=== PATIENT | female | born 1945 | race Hispanic/Latino ===

== ENCOUNTER 2021-03-25 13:04 | Observation (INO) | payer MEDICARE ==
[~2021-03-25] VITALS: Ht 157.5 cm; Wt 58.1 kg
[2021-03-25] MEDS ORDERED: ASPIRIN 325 MG TABLET ONE (13:28)
[2021-03-25] MEDS ORDERED: ONDANSETRON HCL 4 MG/2 ML VIAL ONE (13:28)
[2021-03-25 13:29] LABS: BASOPHILS % (AUTO) 0.2 % (0.0-5.0); HEMATOCRIT 37.8 % (36-48); MEAN CORPUSCULAR HEMOGLOBIN 31.1 pg (27.0-33.0); MEAN CORPUSCULAR HGB CONC 33.6 g/dL (32.0-36.0); MEAN CORPUSCULAR VOLUME 92.6 fL (79-99); MONOCYTES % (AUTO) 7.2 % (3.0-13.0); NEUTROPHILS % (AUTO) 75.2 % (40.0-77.0); PLATELET COUNT (AUTO) 198 K/uL (130-400); RED BLOOD CELL COUNT(AUTO) 4.08 MIL/uL (4.00-5.50); RED CELL DISTRIBUTION WIDTH 12.6 % (11.0-15.5); WHITE BLOOD COUNT (AUTO) 5.1 K/uL (4.8-10.8)
[2021-03-25] MEDS ORDERED: SODIUM CHLORIDE 0.9% 500ML 500 ML IV ONE (13:29)
[2021-03-25 13:39] LABS: CREATININE 0.9 mg/dL (0.5-1.5); INR 1.04 (0.85-1.15); POTASSIUM 3.6 mmol/L (3.5-5.1); PROTHROMBIN TIME 11.3 SEC (9.6-11.6)
[2021-03-25 13:40] LABS: PARTIAL THROMBOPLASTIN TIME 25.4 SEC (26.3-35.5)
[2021-03-25 13:44] LABS: ALBUMIN 4.4 g/dL (3.5-5.0); BILIRUBIN,TOTAL 0.5 mg/dL (0.2-1.0)
[2021-03-25 13:53] LABS: B-TYPE NATRIURETIC PEPTIDE 53 pg/mL (0-100)
[2021-03-25] MEDS ORDERED: ONDANSETRON HCL 4 MG/2 ML VIAL IV PRN (16:30)
[2021-03-25] MEDS ORDERED: TEMAZEPAM 7.5 MG CAPSULE PO PRN (16:30)
[2021-03-25] MEDS ORDERED: ACETAMINOPHEN 325 MG TAB PO PRN ×2 (16:30)
[2021-03-25 16:49] LABS: APPEARANCE,URINE Clear (CLEAR); BILIRUBIN,URINE Negative (NEGATIVE); COLOR,URINE Yellow (YELLOW); GLUCOSE, URINE (UA) 500 mg/dL (NEGATIVE); KETONES,URINE >=80 mg/dL (NEGATIVE); LEUKOCYTE ESTERASE ,URINE Small (NEGATIVE); NITRATE,URINE Negative (NEGATIVE); OCCULT BLOOD,URINE Negative (NEGATIVE); PROTEIN,URINE Trace mg/dL (NEGATIVE)
[2021-03-25 16:57] LABS: AMPHET/METH SCREEN,URINE NEGATIVE (NEGATIVE); BARBITURATE SCREEN, URINE NEGATIVE (NEGATIVE); BENZODIAZEPINES SCREEN,URINE NEGATIVE (NEGATIVE); CANNABINOID SCREEN,URINE NEGATIVE (NEGATIVE); COCAINE SCREEN,URINE NEGATIVE (NEGATIVE); OPIATE SCREEN,URINE NEGATIVE (NEGATIVE); PHENCYCLIDINE SCREEN,URINE NEGATIVE (NEGATIVE)
[2021-03-25 17:06] LABS: BACTERIA,URINE Few /HPF (None Seen); MUCUS,URINE Moderate LPF (None Seen); SQUAMOUS EPITHELIAL CELL,UR Few /HPF (0-2)
[2021-03-25 17:21] LABS: CREATINE KINASE, TOTAL 43 U/L (21-232); MYOGLOBIN 32 ng/mL (10-92); THYROID STIMULATING HORMONE 0.54 uIU/mL (0.36-3.74); TROPONIN I < 0.04 ng/mL (0.00-0.06)
[2021-03-25] MEDS ORDERED: DEXTROSE 50%-WATER 50 ML DISP.SYRIN IV ONE (17:22)
[2021-03-25] MEDS ORDERED: ATORVASTATIN CALCIUM 40 MG TABLET PO SCH (21:00)
[2021-03-25] MEDS: INSULIN HUMULIN R 100 UNIT/ML 3ML SQ SCH (21:00)
[2021-03-26] VITALS: BP 139/65
[2021-03-26] MEDS: NITROGLYCERIN 1GM/1 INCH PACKET TD SCH ×2 (00:09→09:35)
[2021-03-26] MEDS: METOPROLOL TARTRATE 25 MG TAB PO SCH ×2 (00:09→09:33)
[2021-03-26 00:12] LABS: CREATINE KINASE, TOTAL 39 U/L (21-232); MYOGLOBIN 31 ng/mL (10-92); TROPONIN I < 0.04 ng/mL (0.00-0.06)
[2021-03-26] MEDS ORDERED: alendronate (00:34)
[2021-03-26] MEDS ORDERED: GLIP10TA9 PO (00:34)
[2021-03-26] MEDS ORDERED: ISOS30TA92 PO (00:34)
[2021-03-26] MEDS ORDERED: trulicity (00:34)
[2021-03-26] MEDS ORDERED: PANT40TA54 PO (00:34)
[2021-03-26] MEDS ORDERED: ENAL20TA18 PO (00:34)
[2021-03-26] MEDS ORDERED: METF-446 PO (00:34)
[2021-03-26] MEDS ORDERED: METO50TA18 PO (00:34)
[2021-03-26] MEDS ORDERED: CLOP75TA14 PO (00:34)
[2021-03-26] MEDS ORDERED: ATOR20TA PO (00:34)
[2021-03-26] MEDS ORDERED: SERT-439 PO (00:34)
[2021-03-26 04:00] VITALS: BP 112/55
[2021-03-26 04:59] LABS: CHOLESTEROL 138 mg/dL (<200); HDL CHOLESTEROL 71 mg/dL (35-85); LDL DIRECT 58 mg/dL (0-99); TRIGLYCERIDES 54 mg/dL (30-200)
[2021-03-26] MEDS: INSULIN HUMULIN R 100 UNIT/ML 3ML SQ SCH ×2 (05:26→11:30)
[2021-03-26 07:30] VITALS: BP 156/79
[2021-03-26 08:37] LABS: CREATINE KINASE, TOTAL 41 U/L (21-232); MYOGLOBIN 42 ng/mL (10-92); TROPONIN I < 0.04 ng/mL (0.00-0.06)
[2021-03-26] MEDS ORDERED: CLOPIDOGREL BISULFATE 75 MG TAB PO SCH (09:00)
[2021-03-26] MEDS ORDERED: FAMOTIDINE 20MG TAB 20 MG TAB PO SCH (09:00)
[2021-03-26] MEDS ORDERED: ASPIRIN 325 MG TABLET PO SCH (09:00)
[2021-03-26] MEDS ORDERED: ENOXAPARIN SODIUM 40 MG/0.4 ML SYRINGE SQ SCH (09:00)
[2021-03-26] MEDS ORDERED: ENALAPRIL MALEATE 10 MG TABLET PO SCH (09:00)
[2021-03-26] MEDS ORDERED: PANTOPRAZOLE SODIUM 40 MG TABLET.DR PO SCH (09:00)
[2021-03-26] MEDS ORDERED: SERTRALINE HCL 50 MG TABLET PO SCH (09:00)
[2021-03-26] MEDS ORDERED: ISOSORBIDE MONO 30MG TAB SR PO SCH (09:00)
[2021-03-26 11:00] VITALS: BP 104/51
[2021-03-26] MEDS ORDERED: AEC81 PO (14:37)
== END 2021-03-26 17:45 | disposition home or self-care (01) ==
LOC: EDH 13:04 → EDHIP 16:17 → 4BH 23:46
PROVIDERS: ADMIT Internal Medicine; ATTEND Internal Medicine
DX: R07.89 Other chest pain (principal); Z20.822 Contact with and (suspected) exposure to COVID-19; E11.9 Type 2 diabetes mellitus without complications; E78.5 Hyperlipidemia, unspecified; I10 Essential (primary) hypertension; F41.9 Anxiety disorder, unspecified; Z79.84 Long term (current) use of oral hypoglycemic drugs; Z79.899 Other long term (current) drug therapy
CPT/HCPCS: 36415 ×2; 71045; 80053; 80061; 80305; 81001; 82550 ×4; 82948 ×3; 83036; 83690; 83874 ×3; 83880; 84443; 84484 ×4; 85025; 85610; 85730; 87426; 87804 ×2; 87880; 93005 ×6; 96372; 99285; G0378 ×26; J1650; J2405; J7040; J7070; U0003